=== PATIENT | female | born 1985 | race American Indian/Alaskan Native ===

== ENCOUNTER 2017-03-14 09:17 | Emergency (ER) | payer MEDICAID ==
--- NOTE | 2017-03-14 09:44 | Emergency Department Report ---
Chief Complaint: Vaginal Bleeding Stated Complaint: VAGINAL BLEEDING Time Seen by Provider: 03/14/17 09:40 - HPI History of Present Illness: 31-year-old female presents for vaginal bleeding since 02/10/2017. Patient states D Bravo heavy bleeding since then. Patient denies , use of any contraceptives or any other complications - ROS Review of Systems: Denies fevers/chills/nausea/vomiting/dizziness/dysuria. Admits to mild intermittent lower pelvic cramping. - Exam Vital Signs: Vital Signs 03/14/17 09:23 Temperature 98.2 F Pulse Rate 86 Respiratory 18 Rate Blood Pressure 149/99 O2 Sat by Pulse 99 Oximetry Physical Exam: GENERAL: Alert and oriented x3, no apparent distress, Normal Gait, atraumatic. ABDOMEN: No organomegaly was noted,Positive bowel sounds, soft, and non- distended. . Nontender to palpation on all Quadrants, NO CVA tenderness. SKIN: Warm and dry, No lesions, No ulceration or induration present. MSE screening note: Focused history and physical exam performed. Due to findings the following was ordered: ED Medical Decision Making - Medical Decision Making 31-year-old stable female with normal vital signs in no distress Labs ordered Ultrasound order Patient to be seen by ED M.Jimmie ED Disposition for MSE Condition: Stable
[2017-03-14 10:02] LABS: Mean Corpuscular HGB Conc 30 % (30-34); Platelet Count 470 K/mm3 (140-440); Red Blood Count 4.48 M/mm3 (3.65-5.03); White Blood Count 5.6 K/mm3 (4.5-11.0)
[2017-03-14 10:04] LABS: Hematocrit 30.4 % (30.3-42.9); Hemoglobin 9.1 gm/dl (10.1-14.3); Mean Corpuscular Hemoglobin 20 pg (28-32); Mean Corpuscular Volume 68 fl (79-97); Red Cell Distribution Width 25.6 % (13.2-15.2)
[2017-03-14 10:37] LABS: Anisocytosis 2+; Basophils % (Manual) 0 % (0.0-1.8); Blastocytes % (Manual) 0 %; Hypochromasia 2+; Microcytosis 1+
[2017-03-14 10:39] LABS: Diff Status Complete
--- NOTE | 2017-03-14 12:28 | Ultrasound Report ---
ULTRASOUND PELVIC COMPLETE ULTRASOUND TRANSVAGINAL HISTORY: Vaginal bleeding. TECHNIQUE: Transabdominal and transvaginal ultrasound with color and spectral doppler interrogation. Longitudinal and transverse real-time images of the pelvis demonstrate that the uterus and ovaries are present and in a normal location. They are of normal echogenicity, contour and size. No pathologic changes in the adjacent tissues are noted. 1.3 cm nabothian cyst in the cervix is noted. IMPRESSION: Unremarkable transabdominal and transvaginal pelvic ultrasounds. Nabothian cyst.
--- NOTE | 2017-03-14 13:11 | Emergency Department Report ---
HPI - General Chief Complaint: Vaginal Bleeding Time Seen by Provider: 03/14/17 09:40 - HPI HPI: Room 7 The patient is a 31-year-old female presenting with a chief complaint of vaginal bleeding. The patient states she's had heavy vaginal bleeding since . The patient states she developed approximately 3 pads per day. Patient missed occasional intermittent pelvic cramping. The patient states she has not seen a physician about the above complaints yet Location: Pelvis Duration: Constant since 02/10/2017 Quality:, Cramping Severity:. Moderate Modifying factors: [see above] Context: [see above] Mode of transportation: Unknown ED Past Medical Hx - Past Medical History Previous Medical History?: No - Surgical History Additional Surgical History: C- section 04/14/2004 - Family History Family history: no significant - Social History Smoking Status: Never Smoker Substance Use Type: Alcohol (occasional) - Medications Home Medications: Home Medications Medication Instructions Recorded Confirmed Last Taken Type Ibuprofen [Motrin 800 MG tab] 800 mg PO Q8HR PRN #20 tablet 03/14/17 Unknown Rx medroxyPROGESTERone ACETATE 10 mg PO QDAY #10 tablet 03/14/17 Unknown Rx [Provera] ED Review of Systems ROS: Stated complaint: VAGINAL BLEEDING Other details as noted in HPI Comment: All other systems reviewed and negative Constitutional: denies: chills, fever Eyes: denies: eye pain, eye discharge, vision change ENT: denies: ear pain, throat pain Respiratory: denies: cough, shortness of breath, wheezing Cardiovascular: denies: chest pain, palpitations Endocrine: no symptoms reported Gastrointestinal: abdominal pain Genitourinary: abnormal menses Musculoskeletal: denies: back pain, joint swelling, arthralgia Skin: denies: rash, lesions Neurological: denies: headache, weakness, paresthesias Psychiatric: denies: anxiety, depression Hematological/Lymphatic: denies: easy bleeding, easy bruising Physical Exam - Physical Exam Vital Signs: Vital Signs 03/14/17 09:23 Temperature 98.2 F Pulse Rate 86 Respiratory 18 Rate Blood Pressure 149/99 O2 Sat by Pulse 99 Oximetry Physical Exam: GENERAL: The patient is well-developed well-nourished female lying on stretcher not appearing to be in acute distress. [] HEENT: Normocephalic. Atraumatic. Extraocular motions are intact. Patient has moist mucous membranes. NECK: Supple. Trachea midline CHEST/LUNGS: Clear to auscultation. There is no respiratory distress noted. HEART/CARDIOVASCULAR: Regular. There is no tachycardia. There is no gallop rub or murmur. ABDOMEN: Abdomen is soft, nontender. Patient has normal bowel sounds. There is no abdominal distention. SKIN: There is no rash. There is no edema. There is no diaphoresis. NEURO: The patient is awake, alert, and oriented. The patient is cooperative. The patient has normal speech MUSCULOSKELETAL: There is no evidence of acute injury. PELVIC: Refused by patient ED Course Vital Signs 03/14/17 09:23 Temperature 98.2 F Pulse Rate 86 Respiratory 18 Rate Blood Pressure 149/99 O2 Sat by Pulse 99 Oximetry ED Medical Decision Making - Lab Data Result diagrams: 03/14/17 09:33 Laboratory Tests 03/14/17 03/14/17 03/14/17 09:33 09:33 09:33 WBC 5.6 RBC 4.48 Hgb 9.1 L Hct 30.4 MCV 68 L MCH 20 L MCHC 30 RDW 25.6 H Plt Count 470 H Add Manual Diff Complete Total Counted 100 Seg Neuts % (Manual) 64.0 Band Neutrophils % 0 Lymphocytes % (Manual) 30.0 Reactive Lymphs % (Man) 0 Monocytes % (Manual) 4.0 Eosinophils % (Manual) 2.0 Basophils % (Manual) 0 Metamyelocytes % 0 Myelocytes % 0 Promyelocytes % 0 Blast Cells % 0 Nucleated RBC % Not Reportable Seg Neutrophils # Man 3.6 Band Neutrophils # 0.0 Lymphocytes # (Manual) 1.7 Abs React Lymphs (Man) 0.0 Monocytes # (Manual) 0.2 Eosinophils # (Manual) 0.1 Basophils # (Manual) 0.0 Metamyelocytes # 0.0 Myelocytes # 0.0 Promyelocytes # 0.0 Blast Cells # 0.0 WBC Morphology Not Reportable Hypersegmented Neuts Not Reportable Hyposegmented Neuts Not Reportable Hypogranular Neuts Not Reportable Smudge Cells Not Reportable Toxic Granulation Not Reportable Toxic Vacuolation Not Reportable Dohle Bodies Not Reportable Pelger-Huet Anomaly Not Reportable Adrienne Rods Not Reportable Platelet Estimate Appears normal Clumped Platelets Not Reportable Plt Clumps, EDTA Not Reportable Large Platelets Not Reportable Giant Platelets Not Reportable Platelet Satelliting Not Reportable Plt Morphology Comment Not Reportable RBC Morphology Not Reportable Dimorphic RBCs Not Reportable Polychromasia Not Reportable Hypochromasia 2+ Poikilocytosis Not Reportable Anisocytosis 2+ Microcytosis 1+ Macrocytosis Not Reportable Spherocytes Not Reportable Pappenheimer Bodies Not Reportable Sickle Cells Not Reportable Target Cells Not Reportable Tear Drop Cells Not Reportable Ovalocytes Not Reportable Helmet Cells Not Reportable Begum-Descanso Bodies Not Reportable Brusly Rings Not Reportable Ruma Cells Not Reportable Bite Cells Not Reportable Crenated Cell Not Reportable Elliptocytes Not Reportable Acanthocytes (Spur) Not Reportable Rouleaux Not Reportable Hemoglobin C Crystals Not Reportable Schistocytes Not Reportable Malaria parasites Not Reportable Claus Bodies Not Reportable Hem Pathologist Commnt No HCG, Quant < 2 Blood Type O POSITIVE Antibody Screen Negative - Radiology Data Radiology results: report reviewed (pelvic ultrasound), image reviewed (pelvic ultrasound) Pelvic ultrasound (read by radiologist) see's-unremarkable transabdominal and transvaginal pelvic ultrasound. - Differential Diagnosis menorrhagia, uterine fibroids, metromenorrhagia Critical care attestation.: If time is entered above; I have spent that time in minutes in the direct care of this critically ill patient, excluding procedure time. ED Disposition Clinical Impression: Menorrhagia Disposition: DC-01 TO HOME OR SELFCARE Is pt being admited?: No Does the pt Need Aspirin: No Condition: Stable Instructions: Menorrhagia (ED) Additional Instructions: Return to the emergency department immediately should you develop worsening symptoms, fever, inability to tolerate food or liquid or any other concerns. Prescriptions: Ibuprofen [Motrin 800 MG tab] 800 mg PO Q8HR PRN #20 tablet PRN Reason: Pain medroxyPROGESTERone ACETATE [Provera] 10 mg PO QDAY #10 tablet Referrals: [facility] [Outside] - 3-5 Days [facility] [Provider Group] - SOLIS NARVAEZ APRN-BC [Primary Care Provider] - 3-5 Days Time of Disposition: 13:14
[2017-03-14 13:37] VITALS: BP 150/92
== END 2017-03-14 13:36 | disposition home or self-care (01) ==
LOC: ED 09:17
DX: N92.0 Excessive and frequent menstruation with regular cycle (principal); Z98.890 Other specified postprocedural states
CPT/HCPCS: 36415; 76830; 76856; 84702; 85007; 85025; 86850; 86900; 86901

== ENCOUNTER 2018-06-19 21:30 | Emergency (ER) | payer OTHER | END 2018-06-19 21:35 | disposition left against medical advice (07) | LOC: ED 21:30 ==

== ENCOUNTER 2020-12-16 11:28 | Emergency (ER) | payer MEDICAID, OTHER ==
--- NOTE | 2020-12-16 14:20 | Emergency Department Report ---
ED Lower Extremity HPI - General Chief Complaint: Extremity Injury, Lower Stated Complaint: KNEE PAINS Time Seen by Provider: 12/16/20 13:59 Source: patient Mode of arrival: Ambulatory Limitations: No Limitations - History of Present Illness Initial Comments: 35-year-old female presents to the ER today with complaints of left knee injury and pain. Patient states that while on the elliptical exercise machine this morning she felt a pop in her left knee. Since then she has been having pain to the lateral aspect of her left knee. She states that she felt like her knee popped out of place. She states that she has had pain off and on to the left knee in the past but has never had any surgery to the knee or any fractures or dislocations in the past to the knee. She denies any obvious swelling, bruising or redness. She states that the pain is worse on flexion and with ambulation. She has not taken anything since the pain started this morning. MD Complaint: knee injury -: Sudden, This morning (around 10am) - Related Data Previous Rx's Medication Instructions Recorded Last Taken Type medroxyPROGESTERone ACETATE 10 mg PO QDAY #10 tablet 03/14/17 Unknown Rx [Provera] Ibuprofen [Motrin 800 MG tab] 800 mg PO Q8HR PRN #20 tablet 12/16/20 Unknown Rx amLODIPine 10 mg PO DAILY #30 tablet 12/16/20 Unknown Rx Allergies Allergy/AdvReac Type Severity Reaction Status Date / Time No Known Allergies Allergy Verified 12/16/20 12:55 ED Review of Systems ROS: Stated complaint: KNEE PAINS Other details as noted in HPI Comment: All other systems reviewed and negative Respiratory: denies: cough, shortness of breath, wheezing Cardiovascular: denies: chest pain, palpitations, dyspnea on exertion, edema, syncope, paroxysmal nocturnal dyspnea Musculoskeletal: joint swelling, arthralgia Neurological: denies: headache, weakness, numbness, paresthesias, confusion, abnormal gait, vertigo Psychiatric: denies: anxiety, depression, auditory hallucinations, visual hallucinations, homicidal thoughts, suicidal thoughts Hematological/Lymphatic: denies: easy bleeding, easy bruising, swollen glands ED Past Medical Hx - Past Medical History Hx Hypertension: Yes Additional medical history: OUT OF MEDS FOR B/P FOR MONTHS - Surgical History Additional Surgical History: C- section 04/14/2004 - Social History Smoking Status: Never Smoker Substance Use Type: Alcohol (occasional) - Medications Home Medications: Home Medications Medication Instructions Recorded Confirmed Last Taken Type medroxyPROGESTERone ACETATE 10 mg PO QDAY #10 tablet 03/14/17 Unknown Rx [Provera] Ibuprofen [Motrin 800 MG tab] 800 mg PO Q8HR PRN #20 tablet 12/16/20 Unknown Rx amLODIPine 10 mg PO DAILY #30 tablet 12/16/20 Unknown Rx ED Physical Exam - General Limitations: No Limitations General appearance: alert, in no apparent distress, obese - Head Head exam: Present: atraumatic, normocephalic, normal inspection - Eye Eye exam: Present: normal appearance, PERRL, EOMI - Neck Neck exam: Present: normal inspection, full ROM - Respiratory Respiratory exam: Present: normal lung sounds bilaterally. Absent: respiratory distress, wheezes, rales, rhonchi - Cardiovascular Cardiovascular Exam: Present: regular rate, normal rhythm, normal heart sounds - Expanded Lower Extremity Exam Left Knee exam: Present: full ROM (Flexion decreased to about 90 degrees due to pain), tenderness (Mild tenderness to palpation to the lateral aspect of the left knee), full knee extension. Absent: swelling, abrasion, laceration, ecchymosis, deformity, crepidus, dislocation, erythema, effusion Neuro vascular tendon exam: Present: no vascular compromise. Absent: abnormal cap refill Gait: Positive: observed and normal - Neurological Exam Neurological exam: Present: alert, oriented X3, CN II-XII intact, normal gait - Psychiatric Psychiatric exam: Present: normal affect, normal mood - Skin Skin exam: Present: intact ED Course Vital Signs 12/16/20 12/16/20 12:54 15:41 Temperature 98.2 F Pulse Rate 88 91 H Respiratory 20 Rate Blood Pressure 174/104 Blood Pressure 170/98 [Right] O2 Sat by Pulse 99 Oximetry ED Lower Extremity MDM - Radiology Data Radiology results: report reviewed Patient: ARMAND GAMEZ MR#: [id number] 9 : 1985 Acct:[id number] Age/Sex: 35 / F ADM Date: 12/16/20 Loc: ED Attending Dr: Ordering Physician: DARSHAN ADKINS Date of Service: 12/16/20 Procedure(s): XR knee 3V LT Accession Number(s): [id number] cc: DARSHAN ADKINS Fluoro Time In Minutes: LEFT KNEE 3 VIEWS INDICATION: pain. COMPARISON: No relevant prior imaging study available. FINDINGS: No acute, displaced fracture or dislocation is seen. There is tricompartmental osteoarthrosis evidenced by joint space narrowing and osteophyte formation. No definite joint effusion is seen. 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 IMPRESSION: 1. No acute findings. Signer Name: Ancelmo Huynh MD Signed: 12/16/2020 3:16 PM Workstation Name: [id number] Transcribed By: OLESYA Dictated By: Ancelmo Huynh MD Electronically Authenticated By: Ancelmo Huynh MD Signed Date/Time: 12/16/201515 DD/ 15 TD/TT: - Medical Decision Making X-ray of the left knee shows nothing acute. Suspect sprain at this time. Patient blood pressure noted to be elevated at triage. Patient admits that she has not been compliant with her blood pressure medication since last year. She states she used to be on amlodipine for her hypertension. Repeat blood pressure prior to discharge shows some improvement. Patient currently has no symptoms related to her high blood pressure at this time. She is awake alert and oriented x3 with no neuro doctor deficits on exam and with a normal gait despite her left knee pain. Patient will be given a refill on her blood pressure medication, and it was stressed to her the importance of being compliant with the medication. Discussed the suspected diagnosis of knee sprain with the patient, as well as treatment plan and recommend follow-up with channel marketing specialist if her symptoms persist. Patient expressed understanding of all instructions and agree with plan. Patient stable at time of discharge. Critical care attestation.: If time is entered above; I have spent that time in minutes in the direct care of this critically ill patient, excluding procedure time. ED Disposition Clinical Impression: Knee sprain, Uncontrolled hypertension, Noncompliance with medication regimen Disposition: TO HOME OR SELFCARE Is pt being admited?: No Does the pt Need Aspirin: No Condition: Stable Instructions: Knee Sprain, Adult, [id number], Elastic Bandage and RICE Therapy, Hypertension, Adult, Hypertension (ED) Additional Instructions: I recommend that you rest, ice and elevate your leg as often as possible for the next 3 to 4 days. I recommend that you follow-up with channel marketing specialist next week especially if your symptoms persist. Take ibuprofen as needed for pain. It is important that you take your amlodipine daily and that you are compliant with taking that medication. Check your blood pressure at home no more than twice a day. Follow-up closely with your primary care doctor to continue monitoring her blood pressure. Return to the ER if your symptoms changes or worsens in any way. Prescriptions: amLODIPine 10 mg PO DAILY #30 tablet Ibuprofen [Motrin 800 MG tab] 800 mg PO Q8HR PRN #20 tablet PRN Reason: Pain Referrals: LORRI GARCIA MD [Staff Physician] - 3-5 Days JASKARAN POWELL MD [Staff Physician] - 7-10 days Forms: Work/School Release Form(ED) Time of Disposition: 15:32
--- NOTE | 2020-12-16 15:21 | XRay Report ---
LEFT KNEE 3 VIEWS INDICATION: pain. COMPARISON: No relevant prior imaging study available. FINDINGS: No acute, displaced fracture or dislocation is seen. There is tricompartmental osteoarthrosis evidenc ed by joint space narrowing and osteophyte formation. No definite joint effusion is seen. There appea rs to be heterotopic ossification lateral to the talus. IMPRESSION: 1. No acute findings. Signer Name: Ancelmo Huynh MD Signed: 12/16/2020 3:16 PM Workstation Name: [id number]
[2020-12-16 15:42] VITALS: BP 170/98
== END 2020-12-16 16:00 | disposition home or self-care (01) ==
LOC: ED 11:28
DX: S83.8X2A Sprain of other specified parts of left knee, initial encounter (principal); I10 Essential (primary) hypertension; Z98.890 Other specified postprocedural states; Z72.89 Other problems related to lifestyle; Z79.899 Other long term (current) drug therapy; X58.XXXA Exposure to other specified factors, initial encounter; Y93.89 Activity, other specified; Y92.89 Other specified places as the place of occurrence of the external cause; Y99.8 Other external cause status
CPT/HCPCS: 99283